=== PATIENT | female | born 1980 | race Caucasian/White ===

== ENCOUNTER 2025-07-03 18:42 | Emergency (ER) | payer MEDICARE, MEDICAID, SELFPAY ==
--- NOTE | ~2025-07-03 | CT_ITS ---
History: Acute confusion PROCEDURE: CT head without contrast. COMPARISON: None TECHNIQUE: Axial imaging of the head performed from the skull base to the vertex without IV contrast. Sagittal a nd coronal reformations obtained. DLP: 605 mGy-cm FINDINGS: The ventricles are normal in size, shape and position. There is no mass, mass effect or midline shift. There is no abnormal extra-axial fluid collection or intracranial hemorrhage. Visualized paranasal sinuses are clear. The mastoid air cells are well aerated. No acute displaced fractures within the overlying cranium. Impression: No acute intracranial hemorrhage or suspicious mass effect. Reviewed, dictated and finalized at location A. Impression: No acute intracranial hemorrhage or suspicious mass effect.
--- NOTE | ~2025-07-03 | XR_ITS ---
CHEST RADIOGRAPH CLINICAL HISTORY: acute confusion, sepsis . COMPARISON: None available TECHNIQUE: Single portable view of the chest. FINDINGS The cardiomediastinal silhouette is enlarged. Increased interstitial markings are identified bilaterally, findings suggesting mild pulmonary vascul ar congestion. The lungs are otherwise clear. IMPRESSION: Mild pulmonary vascular congestion, without focal infiltrate or effusion. Reviewed, dictated and finalized at location A.
[2025-07-03 18:46] VITALS: BP 107/55; PULSE 65; RESP 17; TEMP 37; O2SAT 97
[2025-07-03 19:07] VITALS: BP 107/55; PULSE 65; RESP 17; TEMP 36.9; O2SAT 100
--- NOTE | 2025-07-03 19:10 | ECG_ITS ---
Test Date: 2025-07-03 20:06:59 Measurements Intervals [place] Rate: 60 P: 58 [place]: 159 QRS: 32 QRSD: 83 T: 51 QT: 428 QTc: 429 Interpretive Statements SINUS RHYTHM BASELINE ARTIFACT- I, III, AVL NORMAL ECG No previous ECG available for comparison Electronically Signed On 07-03-2025 20:40:04 CDT by Satya Gracia D.O.
--- NOTE | 2025-07-03 19:37 | ED.AMS ---
HPI - Altered Mental Status General Chief Complaint: Altered Mental Status Stated Complaint: CONFUSION X FEW DAYS Time Seen by Provider: 07/03/25 19:08 History of Present Illness HPI narrative: 44-year-old female with history of significant bipolar depression, Asperger syndrome, diabetes no hypertension. She resides at a [facility]. Patient has been more confused this last week with an unknown last known well according to the brother who provides the majority of the collateral formation. Patient is a very poor historian and any time she is asked healthcare question she reports back the entirety of her health history without any seeming timeline. The brother states that he was called by his sister about Wednesday and he knows that she was not making coherent sense and not answering questions appropriately. This has progressed throughout the weekend and into today where she was not making sense to the nursing staff and had some garbled words during conversation with possible slurring. [facility] called EMS for assistance. Patient is endorsing a mild bilateral frontal headache. Denies any nausea or neck pain. Was otherwise in her normal state of health last month. Brother provides additional information states she has had some medication changes recently and including her gabapentin being stopped approximately 2 weeks ago as well as her Prozac being changed to Pristiq last week as well as having an Invega shot on the 7th of this month which is not a new medication she gets monthly injections. Related Data Allergies Allergy/AdvReac Type Severity Reaction Status Date / Time paroxetine (From Paxil) Allergy Severe Anaphylactic Verified 07/03/25 19:06 Shock amphetamine Allergy Mild Unknown Verified 07/03/25 19:06 bupropion (From Wellbutrin) Allergy Mild Unknown Verified 07/03/25 19:06 celecoxib (From Celebrex) Allergy Mild Unknown Verified 07/03/25 19:06 escitalopram (From Lexapro) Allergy Mild Unknown Verified 07/03/25 19:06 lurasidone (From Latuda) Allergy Mild Unknown Verified 07/03/25 19:06 methylphenidate Allergy Mild Unknown Verified 07/03/25 19:06 Milk Containing Products Allergy Mild Unknown Verified 07/03/25 19:06 (Dairy) aripiprazole (From Abilify) AdvReac Intermediate Agitated Verified 07/03/25 19:06 Review of Systems Review of Systems: As reviewed above in HPI but limited secondary to patient's medical condition ROS unobtainable: Yes unobtainable due to medical condition Exam Narrative: GENERAL: [Well-appearing, well-nourished, and in no acute distress.] HEAD: [Normocephalic, atraumatic.] EYES: [PERRLA and EOMI.] ENT: Nares clear, no rhinorrhea or epistaxis. Mucous membranes moist. NECK: Supple. CHEST: [Clear to auscultation. No respiratory distress.] HEART: [Regular rate and rhythm]. No murmur heard. [Normal peripheral pulses.] ABDOMEN: [Soft, nondistended], [nontender], [No rigidity or guarding] EXTREMITIES: Normal range of motion. [No edema.] SKIN: Warm, dry, no rash. NEURO: Full examination reveals no focal deficits, tremors appreciated in the bilateral upper extremities, awake alert oriented, answering length and orientation questions appropriately but seemingly confused on order events and history of events an interval recent change from prior baseline mentation according to family at bedside PSYCH: [Normal mood and affect.] Course Vital Signs Vital signs: Vital Signs Temperature 37.0 C 07/03/25 18:46 Pulse Rate 65 07/03/25 18:46 Respiratory Rate 17 07/03/25 18:46 Blood Pressure 107/55 L 07/03/25 18:46 Pulse Oximetry 97 07/03/25 18:46 Oxygen Delivery Room Air 07/03/25 18:46 Temperature 36.9 C 07/03/25 19:07 Pulse Rate 65 07/03/25 19:07 Respiratory Rate 17 07/03/25 19:07 Blood Pressure 107/55 L 07/03/25 19:07 Pulse Oximetry 100 07/03/25 19:07 Oxygen Delivery Room Air 07/03/25 18:46 MDM - Altered Mental Status MDM Narrative Medical decision making narrative: 44-year-old female with history of significant bipolar depression, Asperger syndrome, diabetes no hypertension. She resides at a penit[facility]iary facility. Patient has been more confused this last week with an unknown last known well according to the brother who provides the majority of the collateral formation. Patient is a very poor historian and any time she is asked healthcare question she reports back the entirety of her health history without any seeming timeline. The brother states that he was called by his sister about Wednesday and he knows that she was not making coherent sense and not answering questions appropriately. This has progressed throughout the weekend and into today where she was not making sense to the nursing staff and had some garbled words during conversation with possible slurring. [facility] called EMS for assistance. Patient is endorsing a mild bilateral frontal headache. Denies any nausea or neck pain. Was otherwise in her normal state of health last month. Brother provides additional information states she has had some medication changes recently and including her gabapentin being stopped approximately 2 weeks ago as well as her Prozac being changed to Pristiq last week as well as having an Invega shot on the 7th of this month which is not a new medication she gets monthly injections. Full examination reveals no focal deficits, tremors appreciated in the bilateral upper extremities, awake alert oriented, answering length and orientation questions appropriately but seemingly confused on order events and history of events an interval recent change from prior baseline mentation according to family at bedside. Patient's vital signs show a slightly low blood pressure of 107/55. No tachycardia, tachypnea or fever. Unremarkable neurological assessment aside from her confusion which is evident and she has some occasional slurring to her speech that the son states is not totally abnormal for her. Differential includes cerebrovascular accident, intracranial hemorrhage, electrolyte abnormalities, urinary tract infection, dehydration, metabolic derangements. Laboratory studies obtained as well as a CT head, urinary analysis ordered, chest x-ray, EKG. Patient given a fluid bolus and placed on campaign analyst. EKG shows normal sinus rhythm. Patient's laboratory studies showed no leukocytosis or significant levels anemia. Normal platelet count. Normal electrolytes, normal kidney function, normal glucose, normal LFTs. Urinalysis with florid signs of urinary infection with 4+ bacteria, white cells, leukocyte esterase nitrites. Negative test. Alcohol level and UDS negative. Chest x-ray without any infiltrates or effusion. Head CT with no acute intracranial findings. Patient and family updated on the workup results and patient was given a dose of Rocephin here and will be discharged home with 7 day course of cefdinir to her penitentiary facility. Patient's family and patient were given return precautions and follow-up instructions and safe for discharge at this time. Medical Records Attestation: I reviewed the patient's medical records. Lab Data Attestation: I reviewed the patient's lab results. 07/03/25 20:25 07/03/25 20:04 Labs: Lab Results 07/03/25 07/03/25 07/03/25 Range/Units 20:04 20:25 20:32 WBC 7.8 (4.5-10.0) K/mm3 RBC 3.36 L (4.2-5.4) M/mm3 Hgb 10.4 L (12.0-15.0) g/dL Hct 32.8 L (37.0-47.0) % MCV 97.6 (80-100) fl MCH 31.0 (26-34) pg MCHC 31.7 L (32-36) g/dl RDW 14.5 (11.5-14.5) % Plt Count 253 (150-375) k/mm3 MPV 9.8 (7.4-10.4) fl Immature Gran % (Auto) 0.9 H (0-0.5) % Neut % (Auto) 59.5 (45.5-73.1) % Lymph % (Auto) 29.5 (18.3-44.2) % [place] % (Auto) 8.7 H (2.6-8.5) % Eos % (Auto) 1.0 (0-4.4) % Baso % (Auto) 0.4 (0.2-1.2) % Lymph # (Auto) 2.30 (0.9-3.2) K/mm3 [place] # (Auto) 0.7 H (0.1-0.6) K/mm3 Eos # (Auto) 0.1 (0-0.3) K/mm3 Baso # (Auto) 0.0 (0.0-0.1) K/mm3 Abs Immat Gran (auto) 0.07 H (0.00-0.031) K/mm3 Absolute Neuts (auto) 4.6 (1.3-6.7) K/mm3 Absolute Nucleated RBC 0.000 (0.0-0.012) K/mm3 Nucleated RBC % 0.0 (0.0-0.2) % PT 13.7 (11.1-14.7) Seconds INR 1.0 APTT 20.0 L (22.3-36.8) Seconds Sodium 135 L (137-145) mmol/L Potassium 4.5 (3.4-5.0) mmol/L Chloride 101 (98-107) mmol/L Carbon Dioxide 27 (22-30) mmol/L Anion Gap 7 (4-12) mmol/L BUN 14 (7-17) mg/dL Creatinine 0.77 (0.7-1.0) mg/dL Estim Creat Clear Calc 115 ml/min Estimated GFR > 60 (59 - ) Glucose 89 (65-110) mg/dL Calcium 9.2 (8.4-10.2) mg/dL Total Bilirubin 0.5 (0.2-1.3) mg/dL AST 28 (14-36) U/L ALT 13 (6-35) U/L Alkaline Phosphatase 85 (38-126) U/L Total Protein 7.0 (6.3-8.2) g/dL Albumin 3.6 (3.5-5.1) g/dL Urine Color Yellow (Yellow) Urine Appearance Clear (Clear) Urine pH 6.0 (5.0-9.0) Ur Specific [place] 1.023 (1.001-1.035) Urine Protein Negative (Negative) mg/dL Urine Glucose (UA) Negative (Negative) mg/dL Urine Ketones Trace H (Negative) mg/dL Ur Blood (Man) Trace (Negative) Urine Nitrate Positive H (Negative) Urine Bilirubin Negative (Negative) Urine Urobilinogen 1.0 (<2.0) mg/dL Leukocyte Esterase Rfl 2+ H (Negative) ANGIE/UL Urine RBC 0-2 (0-2) /hpf Urine WBC 51-100 H (0-3) /hpf Ur Squamous Epith Cells Occasional (Few) /hpf Urine Bacteria 4+ H /hpf Urine Casts 0-2 POC Urine HCG, Qual (Negative) Urine Opiates Screen Negative (Negative) Urine Methadone Screen Negative (Negative) Ur Barbiturates Screen Negative (Negative) Ur Phencyclidine Scrn Negative (Negative) Ur Amphetamine Screen Negative (Negative) U Benzodiazepines Scrn Negative (Negative) Urine Cocaine Screen Negative (Negative) U Cannabinoids Screen Negative (Negative) Ethyl Alcohol < 10 (<10) mg/dL 07/03/25 Range/Units 20:38 WBC (4.5-10.0) K/mm3 RBC (4.2-5.4) M/mm3 Hgb (12.0-15.0) g/dL Hct (37.0-47.0) % MCV (80-100) fl MCH (26-34) pg MCHC (32-36) g/dl RDW (11.5-14.5) % Plt Count (150-375) k/mm3 MPV (7.4-10.4) fl Immature Gran % (Auto) (0-0.5) % Neut % (Auto) (45.5-73.1) % Lymph % (Auto) (18.3-44.2) % [place] % (Auto) (2.6-8.5) % Eos % (Auto) (0-4.4) % Baso % (Auto) (0.2-1.2) % Lymph # (Auto) (0.9-3.2) K/mm3 [place] # (Auto) (0.1-0.6) K/mm3 Eos # (Auto) (0-0.3) K/mm3 Baso # (Auto) (0.0-0.1) K/mm3 Abs Immat Gran (auto) (0.00-0.031) K/mm3 Absolute Neuts (auto) (1.3-6.7) K/mm3 Absolute Nucleated RBC (0.0-0.012) K/mm3 Nucleated RBC % (0.0-0.2) % PT (11.1-14.7) Seconds INR APTT (22.3-36.8) Seconds Sodium (137-145) mmol/L Potassium (3.4-5.0) mmol/L Chloride (98-107) mmol/L Carbon Dioxide (22-30) mmol/L Anion Gap (4-12) mmol/L BUN (7-17) mg/dL Creatinine (0.7-1.0) mg/dL Estim Creat Clear Calc ml/min Estimated GFR (59 - ) Glucose (65-110) mg/dL Calcium (8.4-10.2) mg/dL Total Bilirubin (0.2-1.3) mg/dL AST (14-36) U/L ALT (6-35) U/L Alkaline Phosphatase (38-126) U/L Total Protein (6.3-8.2) g/dL Albumin (3.5-5.1) g/dL Urine Color (Yellow) Urine Appearance (Clear) Urine pH (5.0-9.0) Ur Specific [place] (1.001-1.035) Urine Protein (Negative) mg/dL Urine Glucose (UA) (Negative) mg/dL Urine Ketones (Negative) mg/dL Ur Blood (Man) (Negative) Urine Nitrate (Negative) Urine Bilirubin (Negative) Urine Urobilinogen (<2.0) mg/dL Leukocyte Esterase Rfl (Negative) ANGIE/UL Urine RBC (0-2) /hpf Urine WBC (0-3) /hpf Ur Squamous Epith Cells (Few) /hpf Urine Bacteria /hpf Urine Casts POC Urine HCG, Qual Negative (Negative) Urine Opiates Screen (Negative) Urine Methadone Screen (Negative) Ur Barbiturates Screen (Negative) Ur Phencyclidine Scrn (Negative) Ur Amphetamine Screen (Negative) U Benzodiazepines Scrn (Negative) Urine Cocaine Screen (Negative) U Cannabinoids Screen (Negative) Ethyl Alcohol (<10) mg/dL Imaging Data Attestation: I personally reviewed and interpreted this imaging study as follows: My impression: Impressions Chest X-Ray 07/03/25 20:05 IMPRESSION: Mild pulmonary vascular congestion, without focal infiltrate or effusion. Head CT 07/03/25 20:05 Impression: No acute intracranial hemorrhage or suspicious mass effect. Discharge Plan Discharge Clinical Impression: Acute confusion due to infection, UTI (urinary tract infection) Patient Disposition: Home Condition: Stable Instructions: Antibiotic Form, Urinary Tract Infection in Women (DC) Additional Instructions: You have a urinary tract infection which is likely contributing to your symptoms today. We will prescribe a 7 day course of antibiotics to be taken 1st thing starting tomorrow after your 1st dose of IV antibiotics here. Follow-up with your regular primary care provider. Return with any emergent or worsening concerns. Patient Language: Turkmen Prescriptions: New cefdinir 300 mg capsule 300 mg PO Q12H 7 Days Qty: 14 0RF Follow-up/Referrals: PHYSICIAN NOT ON STAFF,NONSTAFF [Primary Care Provider] - Time of Disposition: 21:52
[2025-07-03] MEDS: LACTATED RINGERS 1,000 ML 999 ML IV CONT (20:08)
[2025-07-03 20:26] LABS: Alanine Aminotransferase 13 U/L (6-35); Albumin Level 3.6 g/dL (3.5-5.1); Alkaline Phosphatase 85 U/L (38-126); Anion Gap 7 mmol/L (4-12); Aspartate Amino Transferase 28 U/L (14-36); Bilirubin,Total 0.5 mg/dL (0.2-1.3); Blood Urea Nitrogen 14 mg/dL (7-17); Calcium 9.2 mg/dL (8.4-10.2); Carbon Dioxide 27 mmol/L (22-30); Chloride 101 mmol/L (98-107); Estimated CRCL calculation 115 ml/min; Estimated Glomerular Filt Rate > 60; Glucose 89 mg/dL (65-110); Potassium 4.5 mmol/L (3.4-5.0); Sodium 135 mmol/L (137-145); Total Protein 7.0 g/dL (6.3-8.2)
[2025-07-03 20:27] LABS: INR 1.0; Prothrombin Time 13.7 Seconds (11.1-14.7)
[2025-07-03 20:31] LABS: Partial Thromboplastin Time 20.0 Seconds (22.3-36.8)
[2025-07-03 20:32] LABS: Hematocrit 32.8 % (37.0-47.0); Hemoglobin 10.4 g/dL (12.0-15.0); Immature Granulocyte Percent A 0.9 % (0-0.5); Lymphocytes Absolute Auto 2.30 K/mm3 (0.9-3.2); Mean Corpuscular HGB Conc 31.7 g/dl (32-36); Mean Corpuscular Hemoglobin 31.0 pg (26-34); Mean Corpuscular Volume 97.6 fl (80-100); Nucleated Red Blood Cells Absolute Auto 0.000 K/mm3 (0.0-0.012); Nucleated Red Blood Cells Perc 0.0 % (0.0-0.2); Platelet Count Result 253 k/mm3 (150-375); Red Blood Count 3.36 M/mm3 (4.2-5.4); White Blood Count 7.8 K/mm3 (4.5-10.0)
[2025-07-03 20:39] LABS: BEDSIDEPREGUCG Negative (Negative)
[2025-07-03 20:45] LABS: Add Urine Microscopic? YES; Appearance Urine Clear (Clear); Glucose Urine UA Negative (Negative); Leukocyte Esterase Ur 2+ LEU/UL (Negative); Nitrate Urine Positive (Negative); Non Pathogenic Casts 0-2; Specific Grav Ur 1.023 (1.001-1.035)
[2025-07-03 21:06] LABS: Cannabinoid Screen Urine Negative (Negative)
[2025-07-03] MEDS: cefTRIAXone 1 GM in SODIUM CHLORIDE 0.9% IV 50 ML 100 ML IVPB (21:56)
== END 2025-07-03 22:30 | disposition home or self-care (01) ==
PROVIDERS: Emergency Provider Student in an Organized Health Care Education/Training Program
DX: N39.0 Urinary tract infection, site not specified (principal); F05 Delirium due to known physiological condition; R03.1 Nonspecific low blood-pressure reading; E11.9 Type 2 diabetes mellitus without complications; F84.5 Asperger's syndrome; F32.A Depression, unspecified; Z79.899 Other long term (current) drug therapy
CPT/HCPCS: 36415; 70450; 71045; 80053; 80307; 81001; 81025; 82077; 85025; 85610; 85730; 87086; 93005; 96361; 96365; 99284; J0696; J7120

== ENCOUNTER 2025-09-08 19:59 | Emergency (ER) | payer MEDICARE, MEDICAID, SELFPAY ==
[2025-09-08] VITALS (30 sets, daily range): BP systolic 95–103; BP diastolic 37–63; PULSE 49–70; RESP 12–24; TEMP 36.8; O2SAT 93–100
--- NOTE | ~2025-09-08 | XR_ITS ---
Examination: XR chest 1V portable Clinical History: CHEST PAIN sob Comparison: 07/03/2025 Technique: Portable AP Findings: Cardiomegaly. Poor visualization right heart border. Mild bibasilar atelectasis. No acute bony abnormality. IMPRESSION: 1. Right basilar airspace opacity not excluded. Consider PA and lateral films with deep inspiration. Reviewed, dictated and finalized at location R.
--- NOTE | 2025-09-08 20:04 | ECG_ITS ---
Test Date: 2025-09-08 20:07:19 Measurements Intervals [place] Rate: 52 P: 50 [place]: 152 QRS: 27 QRSD: 85 T: 49 QT: 435 QTc: 407 Interpretive Statements SINUS BRADYCARDIA BASELINE ARTIFACT- I, II, III, AVR, AVL, AVF, V1-V6 BORDERLINE ECG Compared to ECG 07/03/2025 20:06:59 HEART RATE HAS DECREASED Electronically Signed On 09-09-2025 08:33:11 CDT by Satya Gracia D.O.
--- NOTE | 2025-09-08 20:09 | ED_ITS ---
HPI - Chest Pain General Chief Complaint: Chest Pain <Bernardino Higginbotham MD - Last Filed: 09/09/25 10:02> Stated Complaint: CP X 1 WEEK, LOW B/P <Bernardino Higginbotham MD - Last Filed: 09/09/25 10:02> Time Seen by Provider: 09/08/25 20:08 <Bernardino Higginbotham MD - Last Filed: 09/09/25 10:02> Source: patient and EMS <Bernardino Higginbotham MD - Last Filed: 09/09/25 10:02> Mode of arrival: EMS <Bernardino Higginbotham MD - Last Filed: 09/09/25 10:02> Limitations: no limitations <Bernardino Higginbotham MD - Last Filed: 09/09/25 10:02> History of Present Illness HPI narrative: This is a 45-year-old female with history of bipolar disorder, histrionic personality disorder who presents to the ED from long-term via EMS for chest pain. Patient states for the past week, she has been having intermittent episodes sternal chest pain radiating to the rest of her chest. Pain is typically worse with exertion. Denies shortness of breath, nausea vomiting. She states that the pain also radiates to her epigastrium. It is sometimes related to food. Denies lightheadedness, dizziness. Denies any new medications. <Bernardino Higginbotham MD - Last Filed: 09/09/25 10:02> Related Data Allergies/Adverse Reactions: Allergies Allergy/AdvReac Type Severity Reaction Status Date / Time paroxetine (From Paxil) Allergy Severe Anaphylactic Verified 07/03/25 19:06 Shock amphetamine Allergy Mild Unknown Verified 07/03/25 19:06 bupropion (From Wellbutrin) Allergy Mild Unknown Verified 07/03/25 19:06 celecoxib (From Celebrex) Allergy Mild Unknown Verified 07/03/25 19:06 escitalopram (From Lexapro) Allergy Mild Unknown Verified 07/03/25 19:06 lurasidone (From Latuda) Allergy Mild Unknown Verified 07/03/25 19:06 methylphenidate Allergy Mild Unknown Verified 07/03/25 19:06 Milk Containing Products Allergy Mild Unknown Verified 07/03/25 19:06 (Dairy) aripiprazole (From Abilify) AdvReac Intermediate Agitated Verified 07/03/25 19:06 <Bernardino Higginbotham MD - Last Filed: 09/09/25 10:02> Review of Systems 2 Review of Systems: Gen.: Denies fevers or chills Eyes: Denies eye pain or visual change ENT: Denies congestion Respiratory: Denies shortness of breath or cough CV: As per HPI GI: Denies abdominal pain nausea, emesis or diarrhea denies burning, urgency, frequency or hematuria Musculoskeletal: Denies back pain or muscle pain Neuro: Denies numbness, tingling, weakness or focal weakness Skin: Denies rash Except as documented, all other systems reviewed and negative <Bernardino Higginbotham MD - Last Filed: 09/09/25 10:02> Exam 2 Narrative: APPEARANCE: No acute distress, nontoxic, resting in bed EYES: EOMI HEENT: Normocephalic, atraumatic, OMM RESPIRATORY: No respiratory distress Clear to auscultation bilaterally with no rhonchi wheezing or rales. CARDIOVASCULAR: Regular rate and rhythm without murmurs rubs or gallops. ABDOMINAL: Obese. Soft, nontender, nondistended, no rebound or guarding MUSCULOSKELETAl: Moves all extremities. No clubbing, cyanosis or edema. NEURO: Awake and alert. Following commands, speech normal, no focal deficits SKIN:: Warm, dry. No rashes lesions or abrasions PSYCHIATRIC: Normal affect/mood, <Bernardino Higginbotham MD - Last Filed: 09/09/25 10:02> Course Reevaluation(s) Reevaluation #1: I assumed care of this patient at shift change with pending labs and disposition. I have re-examined the patient she is comfortably resting her pain is much gone I did inform her about the lab work her blood pressure has improved with hydration. She does feel comfortable going back to the long-term. < Jakob Serrano MD - Last Filed: 09/09/25 00:35> Date: 09/08/25 <Jakob Serrano MD - Last Filed: 09/09/25 00:35> Vital Signs Vital signs: Vital Signs Temperature 98.2 F 09/08/25 19:57 Pulse Rate 62 09/08/25 19:57 Respiratory Rate 20 09/08/25 19:57 Blood Pressure 99/37 L 09/08/25 19:57 Pulse Oximetry 98 09/08/25 19:57 Oxygen Delivery Room Air 09/08/25 19:57 Temperature 98.2 F 09/08/25 19:57 Pulse Rate 60 09/09/25 01:30 Respiratory Rate 19 09/09/25 01:30 Blood Pressure 103/57 L 09/08/25 23:47 Pulse Oximetry 100 09/09/25 01:30 Oxygen Delivery Room Air 09/08/25 20:22 <Bernardino Higginbotham MD - Last Filed: 09/09/25 10:02> Vital Signs Temperature 98.2 F 09/08/25 19:57 Pulse Rate 62 09/08/25 19:57 Respiratory Rate 20 09/08/25 19:57 Blood Pressure 99/37 L 09/08/25 19:57 Pulse Oximetry 98 09/08/25 19:57 Oxygen Delivery Room Air 09/08/25 19:57 Temperature 98.2 F 09/08/25 19:57 Pulse Rate 60 09/09/25 01:30 Respiratory Rate 19 09/09/25 01:30 Blood Pressure 103/57 L 09/08/25 23:47 Pulse Oximetry 100 09/09/25 01:30 Oxygen Delivery Room Air 09/08/25 20:22 <Jakob Serrano MD - Last Filed: 09/09/25 00:35> MDM - Chest Pain MDM Narrative Medical decision making narrative: 45-year-old female presenting for chest pain and hypotension. On initial evaluation the patient was in no acute distress afebrile. She did have blood pressures with maps in the 40s to 50s. However, she was mentating very appropriately and she was actually able to walk around the room without any significant changes. She had very palpable pulses. Suspect that the blood pressure is an accurate. EKG showed no concerning findings. CBC and CMP were without significant abnormalities. Initial troponin negative. Patient was given 1 L NS bolus by EMS and was given additional 1 L NS bolus here. Chest pain improved. BP improved after changing BP cuff. MAPs now in the mid to late 60s. Repeat troponin pending. Signed out to Dr. Fernandez due to shift change, possible discharge if BP remains stable. <Bernardino Higginbotham MD - Last Filed: 09/09/25 10:02> Differential Diagnosis Differential diagnosis: Likely stable angina, atypical chest pain, chest pain and biliary colic < Bernardino Higginbotham MD - Last Filed: 09/09/25 10:02> Medical Records Data Attestation: I reviewed the patient's medical records. <Bernardino Higginbotham MD - Last Filed: 09/09/25 10:02> Lab Data Attestation: I reviewed the patient's lab results. <Bernardino Higginbotham MD - Last Filed: 09/09/25 10:02> Result diagrams: 09/08/25 20:41 09/08/25 20:41 <Bernardino Higginbotham MD - Last Filed: 09/09/25 10:02> Labs: Lab Results 09/08/25 09/08/25 09/08/25 Range/Units 20:40 20:41 23:33 WBC 9.5 (4.5-10.0) K/mm3 RBC 3.72 L (4.2-5.4) M/mm3 Hgb 11.9 L (12.0-15.0) g/dL Hct 36.4 L (37.0-47.0) % MCV 97.8 (80-100) fl MCH 32.0 (26-34) pg MCHC 32.7 (32-36) g/dl RDW 14.6 H (11.5-14.5) % Plt Count 250 (150-375) k/mm3 MPV 9.8 (7.4-10.4) fl Immature Gran % (Auto) 0.5 (0-0.5) % Neut % (Auto) 60.6 (45.5-73.1) % Lymph % (Auto) 31.1 (18.3-44.2) % [place] % (Auto) 6.8 (2.6-8.5) % Eos % (Auto) 0.8 (0-4.4) % Baso % (Auto) 0.2 (0.2-1.2) % Lymph # (Auto) 2.95 (0.9-3.2) K/mm3 [place] # (Auto) 0.7 H (0.1-0.6) K/mm3 Eos # (Auto) 0.1 (0-0.3) K/mm3 Baso # (Auto) 0.0 (0.0-0.1) K/mm3 Abs Immat Gran (auto) 0.05 H (0.00-0.031) K/mm3 Absolute Neuts (auto) 5.7 (1.3-6.7) K/mm3 Absolute Nucleated RBC 0.000 (0.0-0.012) K/mm3 Nucleated RBC % 0.0 (0.0-0.2) % PT 13.7 (11.1-14.7) Seconds INR 1.1 APTT 20.9 L (22.3-36.8) Seconds Sodium 133 L (137-145) mmol/L Potassium 4.1 (3.4-5.0) mmol/L Chloride 100 (98-107) mmol/L Carbon Dioxide 24 (22-30) mmol/L Anion Gap 9 (4-12) mmol/L BUN 18 H (7-17) mg/dL Creatinine 0.89 (0.7-1.0) mg/dL Estim Creat Clear Calc 96 ml/min Estimated GFR > 60 (59 - ) Glucose 97 (65-110) mg/dL Calcium 8.7 (8.4-10.2) mg/dL Total Bilirubin 0.6 (0.2-1.3) mg/dL AST 22 (14-36) U/L ALT 14 (6-35) U/L Alkaline Phosphatase 88 (38-126) U/L Troponin I < 0.012 < 0.012 (0.000-0.034) ng/mL NT-Pro-B Natriuret Pep 383 H (19.9-100) pg/mL Total Protein 7.1 (6.3-8.2) g/dL Albumin 3.7 (3.5-5.1) g/dL Lipase 113 (23-300) U/L <Bernardino Higginbotham MD - Last Filed: 09/09/25 10:02> Lab Results 09/08/25 09/08/25 09/08/25 Range/Units 20:40 20:41 23:33 WBC 9.5 (4.5-10.0) K/mm3 RBC 3.72 L (4.2-5.4) M/mm3 Hgb 11.9 L (12.0-15.0) g/dL Hct 36.4 L (37.0-47.0) % MCV 97.8 (80-100) fl MCH 32.0 (26-34) pg MCHC 32.7 (32-36) g/dl RDW 14.6 H (11.5-14.5) % Plt Count 250 (150-375) k/mm3 MPV 9.8 (7.4-10.4) fl Immature Gran % (Auto) 0.5 (0-0.5) % Neut % (Auto) 60.6 (45.5-73.1) % Lymph % (Auto) 31.1 (18.3-44.2) % [place] % (Auto) 6.8 (2.6-8.5) % Eos % (Auto) 0.8 (0-4.4) % Baso % (Auto) 0.2 (0.2-1.2) % Lymph # (Auto) 2.95 (0.9-3.2) K/mm3 [place] # (Auto) 0.7 H (0.1-0.6) K/mm3 Eos # (Auto) 0.1 (0-0.3) K/mm3 Baso # (Auto) 0.0 (0.0-0.1) K/mm3 Abs Immat Gran (auto) 0.05 H (0.00-0.031) K/mm3 Absolute Neuts (auto) 5.7 (1.3-6.7) K/mm3 Absolute Nucleated RBC 0.000 (0.0-0.012) K/mm3 Nucleated RBC % 0.0 (0.0-0.2) % PT 13.7 (11.1-14.7) Seconds INR 1.1 APTT 20.9 L (22.3-36.8) Seconds Sodium 133 L (137-145) mmol/L Potassium 4.1 (3.4-5.0) mmol/L Chloride 100 (98-107) mmol/L Carbon Dioxide 24 (22-30) mmol/L Anion Gap 9 (4-12) mmol/L BUN 18 H (7-17) mg/dL Creatinine 0.89 (0.7-1.0) mg/dL Estim Creat Clear Calc 96 ml/min Estimated GFR > 60 (59 - ) Glucose 97 (65-110) mg/dL Calcium 8.7 (8.4-10.2) mg/dL Total Bilirubin 0.6 (0.2-1.3) mg/dL AST 22 (14-36) U/L ALT 14 (6-35) U/L Alkaline Phosphatase 88 (38-126) U/L Troponin I < 0.012 < 0.012 (0.000-0.034) ng/mL NT-Pro-B Natriuret Pep 383 H (19.9-100) pg/mL Total Protein 7.1 (6.3-8.2) g/dL Albumin 3.7 (3.5-5.1) g/dL Lipase 113 (23-300) U/L <Jakob Serrano MD - Last Filed: 09/09/25 00:35> Imaging Data Attestation: I personally reviewed and interpreted this imaging study as follows: < Bernardino Higginbotham MD - Last Filed: 09/09/25 10:02> ECG Data EKG #1: Attestation: I personally reviewed and interpreted this ECG as follows: <Bernardino Higginbotham MD - Last Filed: 09/09/25 10:02> ECG completion date: 09/08/25 <Bernardino Higginbotham MD - Last Filed: 09/09/25 10:02> ECG completion time: 20:07 <Bernardino Higginbotham MD - Last Filed: 09/09/25 10:02> Interpretation: Sinus bradycardia rate of 52, normal axis, normal intervals, no acute ST or T-wave changes <Bernardino Higginbotham MD - Last Filed: 09/09/25 10:02> Discharge Plan Discharge Clinical Impression: Atypical chest pain <Bernardino Higginbotham MD - Last Filed: 09/09/25 10:02> Patient Disposition: [facility] Shelter/Asst Living <Bernardino Higginbotham MD - Last Filed: 09/09/25 10:02> Condition: Stable <Bernardino Higginbotham MD - Last Filed: 09/09/25 10:02> Instructions: Antibiotic Form <Bernardino Higginbotham MD - Last Filed: 09/09/25 10:02> Patient Language: Kyrgyz <Bernardino Higginbotham MD - Last Filed: 09/09/25 10:02> Prescriptions: No Action cefdinir 300 mg capsule 300 mg PO Q12H 7 Days Qty: 14 0RF <Bernardino Higginbotham MD - Last Filed: 09/09/25 10:02> Follow-up/Referrals: PHYSICIAN NOT ON STAFF,NONSTAFF [Primary Care Provider] <Bernardino Higginbotham MD - Last Filed: 09/09/25 10:02> Time of Disposition: 00:35 <Bernardino Higginbotham MD - Last Filed: 09/09/25 10:02> 00:35 <Jakob Serrano MD - Last Filed: 09/09/25 00:35>
--- NOTE | 2025-09-08 20:21 | PC.NURSE ---
Patient had 1L NS bolus started by EMS en route, VORB to have bolus finish infusing.
[2025-09-08 20:46] LABS: Hematocrit 36.4 % (37.0-47.0); Hemoglobin 11.9 g/dL (12.0-15.0); Immature Granulocyte Percent A 0.5 % (0-0.5); Lymphocytes Absolute Auto 2.95 K/mm3 (0.9-3.2); Mean Corpuscular HGB Conc 32.7 g/dl (32-36); Mean Corpuscular Hemoglobin 32.0 pg (26-34); Mean Corpuscular Volume 97.8 fl (80-100); Nucleated Red Blood Cells Absolute Auto 0.000 K/mm3 (0.0-0.012); Nucleated Red Blood Cells Perc 0.0 % (0.0-0.2); Platelet Count Result 250 k/mm3 (150-375); Red Blood Count 3.72 M/mm3 (4.2-5.4); White Blood Count 9.5 K/mm3 (4.5-10.0)
[2025-09-08 20:56] LABS: Alanine Aminotransferase 14 U/L (6-35); Albumin Level 3.7 g/dL (3.5-5.1); Alkaline Phosphatase 88 U/L (38-126); Anion Gap 9 mmol/L (4-12); Aspartate Amino Transferase 22 U/L (14-36); Bilirubin,Total 0.6 mg/dL (0.2-1.3); Blood Urea Nitrogen 18 mg/dL (7-17); Calcium 8.7 mg/dL (8.4-10.2); Carbon Dioxide 24 mmol/L (22-30); Chloride 100 mmol/L (98-107); Estimated CRCL calculation 96 ml/min; Estimated Glomerular Filt Rate > 60; Glucose 97 mg/dL (65-110); Lipase 113 U/L (23-300); Potassium 4.1 mmol/L (3.4-5.0); Sodium 133 mmol/L (137-145); Total Protein 7.1 g/dL (6.3-8.2)
[2025-09-08 20:58] LABS: INR 1.1; Prothrombin Time 13.7 Seconds (11.1-14.7)
[2025-09-08 20:59] LABS: Partial Thromboplastin Time 20.9 Seconds (22.3-36.8)
[2025-09-08 21:08] LABS: Troponin I < 0.012 ng/mL (0.000-0.034)
[2025-09-08] MEDS: SODIUM CHLORIDE 0.9% IV 1,000 ML 999 ML IV CONT (21:17)
[2025-09-08 21:29] LABS: NT Pro B Type Natriuretic Pept 383 pg/mL (19.9-100)
--- NOTE | 2025-09-08 22:43 | PC.NURSE ---
[id number] Ellen, nurse with [facility] calls to get update.
--- NOTE | 2025-09-08 23:08 | ECG_ITS ---
Test Date: 2025-09-08 23:12:29 Measurements Intervals [place] Rate: 58 P: 60 PA: 174 QRS: 40 QRSD: 87 T: 54 QT: 445 QTc: 440 Interpretive Statements SINUS BRADYCARDIA EARLY PRECORDIAL R/S TRANSITION BASELINE ARTIFACT- I, II, III, AVR, AVL, AVF BORDERLINE ECG Compared to ECG 09/08/2025 20:07:19 No significant changes Electronically Signed On 09-09-2025 08:37:41 CDT by Satya Gracia D.O.
--- NOTE | 2025-09-08 23:32 | PC.NURSE ---
Patient had pulled out L AC IV because I wanted to. IV catheter found in bed, tip intact.
[2025-09-09] VITALS (7 sets, daily range): PULSE 58–71; RESP 19–26; O2SAT 98–100
[2025-09-09 00:03] LABS: Troponin I < 0.012 ng/mL (0.000-0.034)
--- NOTE | 2025-09-09 00:38 | PC.NURSE ---
[phone] This RN attempted to call report to [facility], no answer and unable to leave a message. This RN also called patients brother Dwayne, again, no answer but another message was left.
== END 2025-09-09 04:29 ==
PROVIDERS: Emergency Provider Student in an Organized Health Care Education/Training Program
DX: R07.89 Other chest pain (principal); R00.1 Bradycardia, unspecified
CPT/HCPCS: 36415; 71045; 80053; 83690; 83880; 84484; 85025; 85610; 85730; 93005; 96360; 99284; J7030